=== PATIENT | male | born 1950 | race Caucasian/White ===

== ENCOUNTER 2023-10-30 20:27 | Emergency (ER) | payer MEDICARE, OTHER ==
[~2023-10-30] VITALS: Ht 185.4 cm; Wt 104.5 kg
[2023-10-30] MEDS ORDERED: LISI20TA24 PO (20:47)
[2023-10-30] MEDS ORDERED: TOLT2TAB20 PO (20:47)
[2023-10-30] MEDS ORDERED: TRAZ-252 PO (20:47)
[2023-10-30] MEDS ORDERED: TAMS0.4C94 PO (20:47)
[2023-10-30] MEDS ORDERED: DUTA0.5C38 PO (20:47)
[2023-10-30] MEDS ORDERED: FOLI-130 PO (20:47)
[2023-10-30 20:48] VITALS: TEMP 98
[2023-10-30 21:02] VITALS: BP 127/64; PULSE 95; RESP 16
[2023-10-30] MEDS: LORazepam 2 MG TABLET PO ONE (21:20)
[2023-11-09] MEDS ORDERED: LIDO700A15 TP (11:59)
[2023-11-09] MEDS ORDERED: ACET-3385 PO (11:59)
[2023-11-09] MEDS ORDERED: IBUP-1492 PO (11:59)
== END 2023-10-30 21:53 | disposition home or self-care (01) ==
LOC: EMS 20:30
DX: F28 Other psychotic disorder not due to a substance or known physiological condition (principal); F03.90 Unspecified dementia, unspecified severity, without behavioral disturbance, psychotic disturbance, mood disturbance, and anxiety; M19.90 Unspecified osteoarthritis, unspecified site; I10 Essential (primary) hypertension; F17.210 Nicotine dependence, cigarettes, uncomplicated
CPT/HCPCS: 99284; Z7502; Z7610

== ENCOUNTER → 2023-11-09 | Emergency (ER) | payer MEDICARE, OTHER ==
[~2023-11-09] VITALS: Ht 185.4 cm; Wt 97.7 kg
[~2023-11-09] MED LIST: ACET-3385 PO; DUTA0.5C38 PO; FOLI-130 PO; IBUP-1492 PO; LIDO700A15 TP; LISI20TA24 PO; TAMS0.4C94 PO; TOLT2TAB20 PO; TRAZ-252 PO
[2023-11-09 11:49] VITALS: TEMP 97.2
[2023-11-09] MEDS: LIDOCAINE 5% TRANSDERMAL PATCH TD ONE (12:03)
[2023-11-09] MEDS: KETOROLAC TROMETHAMINE 30 MG/ML VIAL IM ONE (12:04)
[2023-11-09] MEDS: ACETAMINOPHEN 500 MG TABLET PO ONE (12:04)
[2023-11-09 12:32] VITALS: BP 112/66; PULSE 70; RESP 18
== END | disposition home or self-care (01) ==
LOC: EMS 11:40
DX: M54.31 Sciatica, right side (principal); I10 Essential (primary) hypertension; F17.210 Nicotine dependence, cigarettes, uncomplicated
CPT/HCPCS: 99283; 96372; J1885

== ENCOUNTER 2023-11-30 15:32 | Emergency (ER) | payer MEDICARE, OTHER ==
[~2023-11-30] VITALS: Ht 182.9 cm; Wt 84.1 kg
[2023-11-30] VITALS (7 sets, daily range): BP systolic 120; BP diastolic 70; PULSE 76–95; RESP 15–20; TEMP 97.9; O2SAT 93–99
[2023-11-30 16:02] LABS: BASOPHILS % (AUTO) 0.9 % (0.0-2.0); EOSINOPHILS % (AUTO) 0.9 % (1.0-6.0); HEMATOCRIT 36.5 % (41-53); HEMOGLOBIN 12.5 g/dL (13.5-17.5); LYMPHOCYTES # (AUTO) 1.6 K/uL (1.0-4.8); LYMPHOCYTES % (AUTO) 24.2 % (22.0-44.0); MEAN CORPUSCULAR HEMOGLOBIN 32.5 pg (26.0-34.0); MEAN CORPUSCULAR HGB CONC 34.4 G/dL (31.0-37.0); MEAN CORPUSCULAR VOLUME 95 fL (80-100); MONOCYTES # (AUTO) 0.7 K/uL (0.1-1.0); MONOCYTES % (AUTO) 10.8 % (2.0-9.0); NEUTROPHILS # (AUTO) 4.1 K/uL (1.8-7.7); NEUTROPHILS % (AUTO) 63.2 % (40.0-70.0); PLATELET COUNT (AUTO) 377 K/uL (150-450); RED BLOOD CELL COUNT(AUTO) 3.86 MIL/uL (4.50-5.90); RED CELL DISTRIBUTION WIDTH 12.5 % (11.5-14.5); WHITE BLOOD COUNT (AUTO) 6.5 K/uL (4.5-11.0)
[2023-11-30 16:05] LABS: COVID AG,FIA SOURCE NASAL SWAB
[2023-11-30] MEDS: MethylPREDNISolone SOD SUCC 125 MG/2 ML VIAL IVP ONE (16:09)
[2023-11-30 16:11] LABS: CALCIUM, TOTAL 9.2 mg/dL (8.8-10.5); CREATININE 1.18 mg/dL (0.60-1.30)
[2023-11-30 16:20] LABS: TROPONIN I-HIGH SENSITIVITY 12 ng/L (<76)
[2023-11-30] MEDS: IPRATROPIUM BROMIDE 0.5 MG/2.5 ML NEB SOLUTION NEB ONE (16:20)
[2023-11-30] MEDS: ALBUTEROL SULFATE 2.5 MG/0.5 ML NEB SOLUTION NEB ONE ×2 (16:21→22:36)
[2023-11-30 16:25] LABS: INFLUENZA TYPE A NEGATIVE FOR TYPE A (NEGATIVE); INFLUENZA TYPE B NEGATIVE FOR TYPE B (NEGATIVE); SARS-COV2 (COVID) ANTIGEN,FIA Negative (Negative)
[2023-11-30] MEDS ORDERED: 0.9% SODIUM CHLORIDE 15 ML NEB SOLUTION NEB ONE (18:28)
[2023-11-30] MEDS: ALBUTEROL SULFATE 2.5 MG/0.5 ML 5 ML NEB SOLUTION NEB ONE (18:31)
[2023-11-30] MEDS: NICOTINE 21 MG/24 HOUR PATCH TD ONE (20:17)
[2023-11-30] MEDS: DOXYCYCLINE HYCLATE 100 MG in DEXTROSE 5%-WATER 100 ML IV ONE (20:37)
[2023-11-30 21:04] LABS: CAP TOTAL HEMOGLOBIN 13.2 G/dL (13.5-18.0); CAPILLARY BLOOD BASE EXCESS -3.2 mmol/L (-2.0-2.0); CAPILLARY BLOOD HCO3 22.4 mEq/L (18.0-26.0); CAPILLARY BLOOD PARTIAL CO2 30.4 mmHg (26.0-40.0); CAPILLARY BLOOD PH 7.453 (7.250-7.350); PO2,CAP BLD GAS 47.8 mmHg (50.0-70.0); SOURCE, BLOOD GAS VENOUS; TEMPERATURE, FAHRENHEIT, BG 98.5 FAHREN (96.0-98.6)
[2023-11-30 21:10] LABS: CAPILLARY BLOOD OXYGEN SAT 84.8 % (95.0-99.0); O2 DEVICE,BLOOD GAS ROOM AIR (ROOM AIR)
[2023-12-01 03:53] LABS: SITE, BLOOD GAS OTHER
[2023-12-01 04:20] LABS: OXYGEN CONTENT,CAP 15.5 VOL % (17.6-24.3)
== END 2023-12-01 01:16 | disposition admitted as inpatient to this hospital (09) ==
LOC: EMS 15:35
DX: J44.9 Chronic obstructive pulmonary disease, unspecified (principal)
CPT/HCPCS: 99285; 96365; 71045; 96375; 99406; 87426; 80048; 83880; 84484; 85025; 87804; 36415; 82805; 94644; 93005; J3490; J2919; J7060; J7030; 94640; 96361; 96374; J7613